=== PATIENT | male | born 1950 | race Caucasian/White ===

== ENCOUNTER → 2017-05-14 13:32 | Outpatient (CLI) | payer MEDICARE, OTHER, SELFPAY ==
--- NOTE | 2017-05-14 13:37 | RAD_ITS ---
STUDY: X-RAY - LUMBOSACRAL SPINE REASON FOR EXAM: Male, 67 years old. Postoperative pain. TECHNIQUE: 7 view(s) of the lumbosacral spine including lateral flexion and extension views were obtained. COMPARISON: None FINDINGS: There is generalized osteopenia. Normal lumbar lordosis. There is no substantial scoliosis. There is normal alignment of the vertebrae. There is limited flexion and extension with no abnormal motion. There are laminectomies from L3 to S1 with posterior fusion at L4-5. There is mild intervertebral disc space narrowing in the lower thoracic and upper lumbar spine. There is diffuse facet sclerosis. Normal bilateral sacral ala, sacroiliac joints, and visualized sacrum. There is marked vascular calcification. RAD/L/S Spine Comp/w Bending Views IMPRESSION: Osteopenia with lumbar spondylosis and postsurgical changes without complication. Limited flexion and extension. Electronically Signed: Joby Piña MD at 17:05 EST , Service support ,
--- NOTE | 2017-05-14 13:37 | RAD_ITS ---
STUDY: X-RAY - PELVIS AND LEFT HIP REASON FOR EXAM: Male, 67 years old. Left hip pain. TECHNIQUE: Radiological exam, hip, unilateral, with pelvis when performed; 2 or 3 views. COMPARISON: None. FINDINGS: There is a non-specific bowel gas pattern. There is soft tissue ossification lateral to the left acetabulum. There is generalized osteopenia. Normal bilateral iliac wings, sacroiliac joints and visualized sacrum. Normal bilateral superior and inferior pubic rami. Normal pubic symphysis. Normal bilateral ischial tuberosities. Incidentally noted are extensive changes of laminectomy and posterior fusion in the lower lumbar spine. Normal visualized femoral head. Normal acetabulum. There is mild medial arthrosis of both hips. 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 Electronically Signed: Joby Piña MD at 17:04 EST , Service support ,
== END ==
PROVIDERS: Visit Provider Orthopaedic Surgery
DX: M54.5 Low back pain (principal); M25.552 Pain in left hip; M25.551 Pain in right hip
CPT/HCPCS: 72114; 73502

== ENCOUNTER → 2017-07-03 14:52 | Outpatient (CLI) | payer MEDICARE, OTHER, SELFPAY ==
--- NOTE | 2017-07-03 14:55 | CT_ITS ---
STUDY: CTA OF THE ABDOMINAL AORTA AND BILATERAL LOWER EXTREMITIES REASON FOR EXAM: Male, 67 years old. Atherosclerosis RADIATION DOSAGE (If Supplied By Facility): CTDIvol = ( 9.87 ) mGy, DLP = ( 1571.20 ) mGycm TECHNIQUE: Axial CT angiography multi-detector data acquisition was obtained following intravenous administration of 100ml ml of Isovue 370 contrast. Axial images and MIP images were reconstructed from the axial data set. Post-processing of the angiographic images was performed, with multiplanar reformation and 3D reconstruction. Individualized dose optimization techniques were used for this CT. TECHNICAL QUALITY: Good COMPARISON: None. Descriptors of Narrowing: None (0%) Mild (< 50%) Moderate (50-70%) Severe (70-90%) Subtotal/Total Occlusion (90-100%) Non-Evaluable (technically non-diagnostic FINDINGS: There is diffuse fatty infiltration of the liver. There are coronary arterial calcifications. There are laminectomy changes in the spine. This is consistent for previous surgery. There is soft tissue swelling around the ankle. Fixation Celiac axis, SMA, renal arteries, and JANELL are patent. Abdominal aorta: No demonstrated narrowing. Celiac and superior mesenteric arteries: No demonstrated narrowing. Inferior mesenteric artery: No demonstrated narrowing. Right renal artery(arteries): No demonstrated narrowing. Left renal artery(arteries): There are 2 left renal arteries. The more inferior smaller caliber left renal artery demonstrates severe stenosis at its origin. 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 There is distal reconstitution of the vessel. Right external iliac artery: No demonstrated narrowing. Right internal iliac artery: No demonstrated narrowing. Left common iliac artery: No demonstrated narrowing. Left external iliac artery: No demonstrated narrowing. Left internal iliac artery: No demonstrated narrowing. RIGHT LOWER EXTREMITY Right common femoral artery: No demonstrated narrowing. Right profundus femoris: No demonstrated narrowing. Right superficial femoral: No demonstrated narrowing. Right popliteal artery: No demonstrated narrowing. Right tibioperoneal trunk: No demonstrated narrowing. Right anterior tibial artery: There is severe diffuse narrowing, with visualization of the vessel to the distal calf. There is nonvisualization of the vessel at the level of the ankle. This may demonstrate severe stenosis or occlusion. Right posterior tibial artery: No demonstrated narrowing. Right peroneal artery: There is severe diffuse narrowing, with visualization of the vessel to the distal calf. There is nonvisualization of the vessel at the level of the ankle. This may demonstrate severe stenosis or occlusion. LEFT LOWER EXTREMITY Left common femoral artery: No demonstrated narrowing. Left profundus femoris: No demonstrated narrowing. Left superficial femoral: No demonstrated narrowing. Left popliteal artery: No demonstrated narrowing. Left tibioperoneal trunk: No demonstrated narrowing. Left anterior tibial artery: There is severe diffuse narrowing, with visualization of the vessel to the distal calf. Left posterior tibial artery: There is severe diffuse narrowing, with visualization of the vessel to the distal calf. Left peroneal artery: There is severe diffuse narrowing, with visualization of the vessel to the distal calf. CT/CTA Abd w/Runoff W/WO Contrast IMPRESSION: Left renal artery(arteries): There are 2 left renal arteries. The more inferior smaller caliber left renal artery demonstrates severe stenosis at its origin. 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 There is distal reconstitution of the vessel. Right peroneal artery: There is severe diffuse narrowing, with visualization of the vessel to the distal calf. There is nonvisualization of the vessel at the level of the ankle. This may demonstrate severe stenosis or occlusion. There is severe narrowing of the left MICHELLE, [employer] ASSESS[employer], AND PERONEAL artery. However there is no evidence for occlusion. Celiac axis, SMA, renal arteries, and JANELL are patent. Electronically Signed: Jair Rodriguez MD at 19:46 EDT , Service support ,
== END ==
PROVIDERS: Family Provider Family Medicine; PCP Family Medicine; Visit Provider Surgery Vascular Surgery
DX: I70.213 Atherosclerosis of native arteries of extremities with intermittent claudication, bilateral legs (principal)
CPT/HCPCS: 75635; Q9967